=== PATIENT | female | born 1960 | race African-American/Black ===

== ENCOUNTER 2017-01-12 07:29 | Day surgery (SDC) | payer MEDICARE ==
[~2017-01-12] VITALS: Ht 170.2 cm; Wt 79.8 kg
[~2017-01-12 07:29] MED LIST: CARB/LEVO SR PO; CORTISPORIN OP7.5 ML OP; GENTAMICIN SULF5 ML OP; INDERAL 40MG TA40 MG PO; LORTAB 5 OR; PATANOL0.1 % OP; PRAMIPEXOLE0.125 MG PO
[2017-01-12 09:53] VITALS: BP 105/62
== END 2017-01-12 10:00 | disposition home or self-care (01) ==
LOC: ENDO 07:29
PROVIDERS: ATTEND Surgery
PROC: 0DJD8ZZ Inspection of Lower Intestinal Tract, Via Natural or Artificial Opening Endoscopic (ICD-10-PCS; principal; 2017-01-12)
DX: Z12.11 Encounter for screening for malignant neoplasm of colon (principal); K64.4 Residual hemorrhoidal skin tags; K57.30 Diverticulosis of large intestine without perforation or abscess without bleeding; I10 Essential (primary) hypertension

== ENCOUNTER 2018-06-07 06:41 | Day surgery (SDC) | payer MEDICARE ==
[~2018-06-07] VITALS: Ht 170.2 cm; Wt 81.6 kg
[~2018-06-07 06:41] MED LIST changes: +AMLODIPINE5 MG PO; +ATORVASTATIN CA20 MG PO; +[UNRECOGNIZED DRUG - OTHER] PO
[2018-06-07 09:57] VITALS: BP 105/59
== END 2018-06-07 09:56 | disposition home or self-care (01) ==
LOC: ENDO 06:41
PROVIDERS: ATTEND Surgery
PROC: 0DBK8ZX Excision of Ascending Colon, Via Natural or Artificial Opening Endoscopic, Diagnostic (ICD-10-PCS; principal; 2018-06-07)
DX: Z12.11 Encounter for screening for malignant neoplasm of colon (principal); D12.2 Benign neoplasm of ascending colon; K57.30 Diverticulosis of large intestine without perforation or abscess without bleeding; I10 Essential (primary) hypertension; G20 Parkinson's disease

== ENCOUNTER 2023-10-03 09:12 | Day surgery (SDC) | payer MEDICARE ==
[~2023-10-03] VITALS: Ht 170.2 cm; Wt 84.8 kg
[~2023-10-03 09:12] MED LIST changes: +AZILECT1 MG PO; +COZAAR25 MG PO; +FISH OIL1000 M1 PO; +PRENATA4 PO
[2023-10-03] MEDS ORDERED: LACTATED RINGER'S 1,000 ML IV ONE (09:35)
[2023-10-03 11:10] VITALS: BP 125/62
[2023-10-03] MEDS ORDERED: LIDOCAINE HCL 2% 2ML SDV IV ONE (12:55)
[2023-10-03] MEDS ORDERED: GLYCOPYRROLATE 0.2 MG/ML IV ONE (12:55)
[2023-10-03] MEDS ORDERED: PROPOFOL 200 MG/20 ML VIAL IV ONE (12:55)
== END 2023-10-03 11:31 | disposition home or self-care (01) ==
LOC: ORM 09:12
PROVIDERS: ATTEND Internal Medicine Gastroenterology
PROC: 0DBM8ZX Excision of Descending Colon, Via Natural or Artificial Opening Endoscopic, Diagnostic (ICD-10-PCS; principal; 2023-10-03)
DX: Z12.11 Encounter for screening for malignant neoplasm of colon (principal); K63.5 Polyp of colon; K57.30 Diverticulosis of large intestine without perforation or abscess without bleeding; K64.8 Other hemorrhoids; I12.9 Hypertensive chronic kidney disease with stage 1 through stage 4 chronic kidney disease, or unspecified chronic kidney disease; N18.30 Chronic kidney disease, stage 3 unspecified; G20.A1 Parkinson's disease without dyskinesia, without mention of fluctuations; E78.2 Mixed hyperlipidemia; Z86.010 Personal history of colon polyps